=== PATIENT | female | born 1935 | race Caucasian/White ===

== ENCOUNTER 2019-11-30 22:02 | Observation (INO) ==
[2019-11-30 22:57] LABS: Hemoglobin 13.3 gm/dL (12.5-16.0); Mean Cell Volume 91.5 fl (78-100); Mean Corpuscular Hemoglobin 31.2 pg (27-31); Mean Corpuscular Hgb Conc 34.1 g/dl (32-36); Mean Platelet Volume 9.7 fl (8-12.5); Neutrophil # 2.7 K/mm3 (1.3-6.0); Neutrophil % 57.8 % (42-75.0); Platelet Count 164 K/mm3 (150-450); Red Blood Count 4.26 M/mm3 (4.2-5.4); Red Cell Distribution Width 12.7 % (11.5-14.0); White Blood Count 4.6 K/mm3 (4.0-10.5)
[2019-11-30 23:13] LABS: Albumin * 3.4 gm/dl (3.4-5.0); Anion Gap 10.7 mmol/L (6.8-13.8); Bilirubin, Total 0.5 mg/dL (0.0-1.1); Ca. Corrected For Albumin 9.2 mg/dL (8.4-10.2); Carbon Dioxide 34.7 mmol/L (24-32.6); Potassium 3.4 mmol/L (3.4-4.6); Total Protein 7.2 gm/dL (6.2-8.2)
[2019-12-01] MEDS ORDERED: NORMAL SALINE 1,000 ML IV ONE (01:32)
[2019-12-01] MEDS ORDERED: OSELTAMIVIR PHOSPHATE 75 MG CAPSULE PO ONE (01:32)
--- NOTE | 2019-12-01 01:32 | ERNOTE ---
Medical Problem HPI - General Chief Complaint: Flu Symptoms Time Seen by Provider: 12/01/19 01:18 Source: patient, family Exam Limitations: no limitations - Immun/Allergies/Home Medications Immunizations: IMMUNIZATION HX Immunizations Up to Date Yes History of Influenza Vaccine Yes Hx Pneumococcal Vaccination Yes Allergies/Adverse Reactions: Allergies No Known Allergies Allergy (Verified 11/30/19 22:33) Home Medications: HOME MEDICATIONS aspirin 81 mg tablet,delayed release 81 mg PO DAILY 07/31/18 [Last Taken Unknown] calcium citrate 250 mg calcium-vitamin D3 200 unit tablet 1 tab PO DAILY tab 07/31/18 [Last Taken Unknown] potassium chloride 20 mEq tablet,extended release 20 meq PO DAILY #90 tab 05/11/19 [Last Taken Unknown] esomeprazole magnesium 20 mg capsule,delayed release 20 mg PO DAILY #30 cap 05/25/19 [Last Taken Unknown] atenolol 100 mg-chlorthalidone 25 mg tablet 0.5 tab PO DAILY #45 tab 10/19/19 [Last Taken Unknown] mirtazapine 15 mg tablet 15 mg PO HS #30 tab 11/16/19 [Last Taken Unknown] - History of Present History Narrative: Patient states she had cough and congestion that started on . She has been worsening over the past couple of days, as well she has been weak and somewhat dizzy. Timing: getting worse Severity: moderate Review of Systems - Review of Systems Constitutional: Present: recent illness, fever ENT: Present: nose congestion, nasal drainage Respiratory: Present: shortness of breath, cough Cardiology: Absent: chest pain Gastrointestinal/Abdominal: Present: nausea. Absent: vomiting Genitourinary: Present: decreased urinary output Musculoskeletal: Present: muscle pain Skin: Absent: rash Neurological: Absent: dizziness/light-headedness Endocrine: Present: excessive sweating Medical History (Last Reviewed 12/01/19 @ 04:31 by Lucy Brown RN) Palpitations (Chronic) Onset Date: Unknown Osteopenia (Chronic) Onset Date: Unknown Osteoarthritis (Chronic) Onset Date: Unknown Hypertension (Chronic) Onset Date: ~08/07/13 Hyperlipidemia (Chronic) Onset Date: ~08/07/13 Hernia (Chronic) Onset Date: Unknown History of gastroesophageal reflux (GERD) (Chronic) Onset Date: ~08/07/13 Gastritis (Chronic) Onset Date: Unknown Diverticulitis (Chronic) Onset Date: Unknown COPD (chronic obstructive pulmonary disease) Surgical History: Surgical History (Last Reviewed 12/01/19 @ 04:31 by Lucy Brown RN) H/O colonoscopy Onset Date: ~06/16/12 With biopsy; Dr. Bowen History of appendectomy Onset Date: ~1946 History of biopsy Onset Date: ~1994 bilateral breasts History of colonoscopy with polypectomy Onset Date: ~06/16/12 History of hysterectomy Onset Date: ~12/2008 [facility] Family History: Family History (Last Reviewed 12/01/19 @ 04:31 by Lucy Brown RN) Mother Alive and well Father , unknown age Cancer Brain tumor Grandmother , unknown age Cancer Uterine Social History: (Last Reviewed 12/01/19 @ 04:31 by Lucy Brown RN) Social History: adopted: No Marital status: lives independently: Yes household members: spouse current occupational status: retired Previous occupational history: RN Highest education level completed: Associate degree: occupat Service: No Tobacco: Smoking Status: Former smoker how long ago did patient quit smoking: age 60 Alcohol: alcohol intake: current alcohol intake frequency: holiday/special occasion Substance Use: substance use type: does not use Dietary Habits: caffeine: Yes Type: coffee Physical Exam - Physical Exam General Appearance: Present: wd/wn, alert, mild distress Head Exam: Present: normal inspection, no evidence of injury Ears, Nose, Throat: Present: normal ENT inspection Neck: Present: normal inspection, nontender Respiratory: Present: no respiratory distress, normal breath sounds Cardiovascular/Chest: Present: regular rate, rhythm, no murmur Gastrointestinal/Abdominal: Present: normal bowel sounds, soft Extremity Exam: Present: normal inspection, normal range of motion Neurological Exam: Present: alert, oriented, normal mood/affect, no motor/sensory deficits Skin Exam: Present: normal color, warm/dry Progress - Results and Orders Patient's Lab Results:: I have reviewed the patient's lab results. Results and Orders: Laboratory Tests 11/30/19 11/30/19 11/30/19 22:50 22:50 22:50 WBC 4.6 Hgb 13.3 Hct 39.0 Plt Count 164 Sodium 125 L Potassium 3.4 Chloride 83 L Carbon Dioxide 34.7 H BUN 10 Creatinine 0.83 Random Glucose 105 Calcium 9.0 Total Bilirubin 0.5 AST 43 ALT 20 Alkaline Phosphatase 48 L Influenza Type A Ag Positive H Influenza Type B Ag Negative - Vital Signs Patient's Vital Signs:: I have reviewed the patient's vital signs. Vital Signs: Vital Signs 11/30/19 22:31 Temperature 36.8 C Pulse Rate 62 Respiratory Rate 18 Blood Pressure 152/80 H O2 Sat by Pulse Oximetry 92 L - EKG EKG #1 EKG: NSR, no ST T wave changes EKG read: Interp. by me - X-Ray X-Ray #1 X-Ray: chest Interpretation: Reviewed by me X-ray Comments: IMPRESSION: 1. HYPERINFLATION WITH MILD FIBROTIC CHANGE. 2. NO ACUTE CARDIOPULMONARY PROCESS. Electronically signed by Hu Ferrell M.D - Progress/Reassessment Chief Complaint: Flu Symptoms Progress Note-Subjective: 12/01/19 03:[address] Reddy she agrees with outpatient admission for IV fluids and diuretics and close monitoring of sodium level Departure Clinical Impression: Hyponatremia, Influenza A - Departure Disposition: Still a patient Condition: Fair
[2019-12-01] MEDS ORDERED: ALBUTEROL SULFATE/IPRATROPIUM 3 ML NEBU IH PRN (08:46)
--- NOTE | 2019-12-01 09:07 | HP ---
Chief Complaint - Chief Complaint Date of Service: 12/01/19 Time of Service: 08:33 History of Present Illness: Johanna kaur is an 84-year-old white female with past medical history of hypertension, COPD, GERD, Diverticulosis, who was admitted on 12/01/2019 because of shortness of breath and coughing. 6 days prior to admission the patient started having fever low-grade and chills associated with cough, congestion, myalgias and arthralgias all over. Her signs and symptoms started worsening over the past couple of days which made her weak and dizzy. Her appetite went down and she had been having poor oral intake. Her reflux started bothering her again and so she started back on her proton pump inhibitor. 1 day prior to admission the patient started having shortness of breath and so she went to our emergency room where she was found to be hyponatremic and had a positive influenza A. Her chest x-ray showed no acute cardiopulmonary findings. It did show mild hyperinflation. Her EKG showed NSR. Her WBC was normal. The patient was admitted for further evaluation and treatment. Medical History (Last Reviewed 12/01/19 @ 04:31 by Lucy Brown RN) Palpitations (Chronic) Onset Date: Unknown Osteopenia (Chronic) Onset Date: Unknown Osteoarthritis (Chronic) Onset Date: Unknown Hypertension (Chronic) Onset Date: ~08/07/13 Hyperlipidemia (Chronic) Onset Date: ~08/07/13 Hernia (Chronic) Onset Date: Unknown History of gastroesophageal reflux (GERD) (Chronic) Onset Date: ~08/07/13 Gastritis (Chronic) Onset Date: Unknown Diverticulitis (Chronic) Onset Date: Unknown COPD (chronic obstructive pulmonary disease) Surgical History: Surgical History (Last Reviewed 12/01/19 @ 04:31 by Lucy Brown RN) H/O colonoscopy Onset Date: ~06/16/12 With biopsy; Dr. Bowen History of appendectomy Onset Date: ~1946 History of biopsy Onset Date: ~1994 bilateral breasts History of colonoscopy with polypectomy Onset Date: ~06/16/12 History of hysterectomy Onset Date: ~12/2008 [facility] Family History: Family History (Last Reviewed 12/01/19 @ 04:31 by Lucy Brown RN) Mother Alive and well Father , unknown age Cancer Brain tumor Grandmother , unknown age Cancer Uterine Social History: (Last Reviewed 12/01/19 @ 04:31 by Lucy Brown RN) Social History: adopted: No Marital status: lives independently: Yes household members: spouse current occupational status: retired Previous occupational history: RN Highest education level completed: Associate degree: occupat Service: No Tobacco: Smoking Status: Former smoker how long ago did patient quit smoking: age 60 Alcohol: alcohol intake: current alcohol intake frequency: holiday/special occasion Substance Use: substance use type: does not use Dietary Habits: caffeine: Yes Type: coffee Review Of Systems (GEN) - Review of Systems Generalized/Overall Review: Present: Weakness, Chills EENTM: Present: Other - sore throat x 1 day. Absent: Blurred Vision Respiratory: Present: Cough, Shortness of Breath. Absent: Wheezing Cardiac: Absent: Chest Pain, Edema, Palpitations Abdominal: Present: Other - loose stools x 1. Absent: Nausea, Vomiting, Abdominal Pain Genitourinary: Absent: Urgency Musculoskeletal: Absent: Joint Pain, Back Pain Neurological: Absent: Headache Skin: Absent: Lesions, Rash Misc: All systems neg except as marked Immunizations: IMMUNIZATION HX Immunizations Up to Date Yes History of Influenza Vaccine Yes Hx Pneumococcal Vaccination Yes Allergies/Adverse Reactions: Allergies Allergy/AdvReac Type Severity Reaction Status Date / Time No Known Allergies Allergy Verified 11/30/19 22:33 Home Medications: HOME MEDICATIONS aspirin 81 mg tablet,delayed release 81 mg PO DAILY 07/31/18 [Last Taken Unknown] calcium citrate 250 mg calcium-vitamin D3 200 unit tablet 1 tab PO DAILY tab 07/31/18 [Last Taken Unknown] potassium chloride 20 mEq tablet,extended release 20 meq PO DAILY #90 tab 05/11/19 [Last Taken Unknown] esomeprazole magnesium 20 mg capsule,delayed release 20 mg PO DAILY #30 cap 05/25/19 [Last Taken Unknown] atenolol 100 mg-chlorthalidone 25 mg tablet 0.5 tab PO DAILY #45 tab 10/19/19 [Last Taken Unknown] mirtazapine 15 mg tablet 15 mg PO HS #30 tab 11/16/19 [Last Taken Unknown] Exam - Exam Vital Signs: Vital Signs - Last Taken Temp 37.0 C 12/01/19 07:30 Pulse 66 12/01/19 07:30 Resp 20 12/01/19 07:30 BP 135/64 12/01/19 07:30 Pulse Ox 97 12/01/19 07:30 Constitutional: Present: Alert, Oriented x3, Cooperative, Elderly, Thin and frail ENT Exam: Present: hearing grossly normal, dry mucous membranes Eye Exam: bilateral eye: normal inspection, PERRL, EOMI Neck: Present: supple. 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, no motor/sensory deficits, oriented x 3 Diagnostic Studies: Abnormal Lab Results 11/30/19 11/30/19 11/30/19 Range/Units 22:50 22:50 22:50 MCH 31.2 H (27-31) pg Monocytes % 13.4 H (0.0-9) % Lymphocytes # 1.31 L (1.5-3.5) k/mm3 Sodium 125 L (132-142) mmol/L Plasma Sodium 125 L (130-142) mmol/L Chloride 83 L (97-106) mmol/L Carbon Dioxide 34.7 H (24-32.6) mmol/L Alkaline Phosphatase 48 L (50-170) U/L Influenza Type A Ag Positive H (NEGATIVE) 12/01/19 Range/Units 02:49 MCH (27-31) pg Monocytes % (0.0-9) % Lymphocytes # (1.5-3.5) k/mm3 Sodium 125 L (132-142) mmol/L Plasma Sodium (130-142) mmol/L Chloride (97-106) mmol/L Carbon Dioxide (24-32.6) mmol/L Alkaline Phosphatase (50-170) U/L Influenza Type A Ag (NEGATIVE) Laboratory Results WBC 4.6 K/mm3 (4.0-10.5) 11/30/19 22:50 RBC 4.26 M/mm3 (4.2-5.4) 11/30/19 22:50 Hgb 13.3 gm/dL (12.5-16.0) 11/30/19 22:50 Hct 39.0 % (37.0-47.0) 11/30/19 22:50 MCV 91.5 fl (78-100) 11/30/19 22:50 MCH 31.2 pg (27-31) H 11/30/19 22:50 MCHC 34.1 g/dl (32-36) 11/30/19 22:50 RDW 12.7 % (11.5-14.0) 11/30/19 22:50 Plt Count 164 K/mm3 (150-450) 11/30/19 22:50 MPV 9.7 fl (8-12.5) 11/30/19 22:50 Immature Gran % (Auto) 0.20 % (0.001-0.429) 11/30/19 22:50 Immature Gran # (Auto) 0.01 K/mm3 (0.000-0.0310) 11/30/19 22:50 Neutrophils % 57.8 % (42-75.0) 11/30/19 22:50 Lymphocytes % 28.2 % (20-51) 11/30/19 22:50 Monocytes % 13.4 % (0.0-9) H 11/30/19 22:50 Eosinophils % 0.0 % (0.0-3.0) 11/30/19:50 Basophils % 0.4 % (0.0-1.0) 11/30/19 22:50 Nucleated RBC % 0.0 k/mm3 (0-1) 11/30/19 22:50 Neutrophils # 2.7 K/mm3 (1.3-6.0) 11/30/19 22:50 Lymphocytes # 1.31 k/mm3 (1.5-3.5) L 11/30/19 22:50 Monocytes # 0.6 k/mm3 (0.0-1.0) 11/30/19 22:50 Eosinophils # 0.0 k/mm3 (0.0-0.7) 11/30/19 22:50 Absolute Basophils 0.0 k/mm3 (0.0-0.1) 11/30/19 22:50 Sodium 125 mmol/L (132-142) L 12/01/19 02:49 Plasma Sodium 125 mmol/L (130-142) L 11/30/19 22:50 Potassium 3.4 mmol/L (3.4-4.6) 11/30/19 22:50 Chloride 83 mmol/L (97-106) L 11/30/19 22:50 Carbon Dioxide 34.7 mmol/L (24-32.6) H 11/30/19 22:50 Anion Gap 10.7 mmol/L (6.8-13.8) 11/30/19 22:50 BUN 10 mg/dL (3-23) 11/30/19 22:50 Creatinine 0.83 mg/dL (0.4-1.4) 11/30/19 22:50 Est GFR (Non-Af Amer) 70 mL/min (60-130) 11/30/19 22:50 BUN/Creatinine Ratio 12.0 (9.0-21.6) 11/30/19 22:50 Random Glucose 105 mg/dL (70-110) 11/30/19 22:50 Calcium 9.0 mg/dL (7.9-10.9) 11/30/19 22:50 Calcium Adj for Albumin 9.2 mg/dL (8.4-10.2) 11/30/19 22:50 Total Bilirubin 0.5 mg/dL (0.0-1.1) 11/30/19 22:50 AST 43 U/L (0-48) 11/30/19 22:50 ALT 20 U/L (19-67) 11/30/19 22:50 Alkaline Phosphatase 48 U/L (50-170) L 11/30/19 22:50 Total Protein 7.2 gm/dL (6.2-8.2) 11/30/19 22:50 Albumin 3.4 gm/dl (3.4-5.0) 11/30/19 22:50 Influenza Type A Ag Positive (NEGATIVE) H 11/30/19 22:50 Influenza Type B Ag Negative (NEGATIVE) 11/30/19 22:50 Assessment/Plan - Narrative Narrative: Johanna Kaur is an 84-year-old white female who was admitted on 12/01/2019 because of shortness of breath, congestion, and weakness. She was found to be hyponatremic with a sodium level of 125 and is likely due to asymptomatic hypotonic, hypovolemic, hyponatremia , acute vs chronic?- likely chronic ( more than 48 hours). Her calculated serum osmolarity is 259.4. We will hold her atenolol chlorthalidone and just give her atenolol as this could be due to her diuretic and to her decreased appetite and p.o. intake from her influenza A. We will start her on IV fluids consisting of NSS +10 M EQ of KCl at 125 mL/h. She got a 1 L bolus bag in the emergency room. We will monitor her sodium level not to exceed 8-10 M EQ in 24 hours. I will also likely continue with her oseltamivir even though this is more than 48 hours as she is more than 66 years old, immunocompromised, and might be having beginning lower respiratory tract infection (SOB, coughing, congestion, feels there is phlegm but cannot bring it out)- acute bronchitis, likely still viral. Will defer form giving antibiotics yet. We will give her DuoNeb treatments as well as incentive spirometry using Steff. We will continue some of her home medications. - Assessment/Plan (1) Hyponatremia Problem: Acute (2) Influenza A Problem: Acute (3) COPD (chronic obstructive pulmonary disease) Problem: Chronic (4) GERD (gastroesophageal reflux disease) Problem: Chronic Qualifiers: (5) Diverticulosis Problem: Chronic (6) Hypertension Problem: Chronic Qualifiers:
[2019-12-01] MEDS: CALCIUM CARBONATE/VITAMIN D3 1 TAB TABLET PO SCH (09:48)
[2019-12-01] MEDS: PANTOPRAZOLE SODIUM 20 MG TABLET.DR PO SCH (09:48)
[2019-12-01] MEDS: ATENOLOL 100 MG TABLET PO SCH ×2 (09:48→10:30)
[2019-12-01] MEDS: POTASSIUM CHLORIDE 10 MEQ in NORMAL SALINE 1,000 ML IV SCH ×2 (09:58→16:02)
[2019-12-01] MEDS ORDERED: ALBUTEROL SULFATE 2.5 MG/0.5 ML VIAL.NEB IH PRN (10:14)
[2019-12-01] MEDS: ATENOLOL 50 MG TABLET PO SCH (10:18)
[2019-12-01 13:15] LABS: Anion Gap 6.6 mmol/L (6.8-13.8); BUN/Creatinine Ratio 9.2 (9.0-21.6); Calcium * 8.1 mg/dL (7.9-10.9); Carbon Dioxide 35.7 mmol/L (24-32.6); Estimated Creat Clear 44.4; Potassium 3.3 mmol/L (3.4-4.6)
[2019-12-01 18:09] LABS: Anion Gap 7.8 mmol/L (6.8-13.8); BUN/Creatinine Ratio 9.2 (9.0-21.6); Calcium * 8.7 mg/dL (7.9-10.9); Carbon Dioxide 35.4 mmol/L (24-32.6); Estimated Creat Clear 44.4; Potassium 3.2 mmol/L (3.4-4.6)
[2019-12-01] MEDS: OSELTAMIVIR PHOSPHATE 75 MG CAPSULE PO SCH (20:19)
[2019-12-01] MEDS ORDERED: CALCIUM CARBONATE 500 MG TAB.CHEW PO PRN (20:55)
[2019-12-01] MEDS ORDERED: MIRTAZAPINE 15 MG TABLET PO SCH (21:00)
[2019-12-01 22:22] LABS: Anion Gap 6.1 mmol/L (6.8-13.8); BUN/Creatinine Ratio 8.3 (9.0-21.6); Calcium * 8.2 mg/dL (7.9-10.9); Carbon Dioxide 33.9 mmol/L (24-32.6); Estimated Creat Clear 46.8
[2019-12-01] MEDS: POTASSIUM CHLORIDE 20 MEQ in NORMAL SALINE 1,000 ML IV SCH (22:52)
[2019-12-02] MEDS: POTASSIUM CHLORIDE 10 MEQ in NORMAL SALINE 1,000 ML IV SCH (02:52)
[2019-12-02] MEDS ORDERED: POTASSIUM CHLORIDE 10 MEQ TABLET.SA PO ONE ×2 (05:00→05:29)
[2019-12-02] MEDS: POTASSIUM CHLORIDE 20 MEQ in NORMAL SALINE 1,000 ML IV SCH ×2 (05:37→13:00)
[2019-12-02] MEDS: PANTOPRAZOLE SODIUM 20 MG TABLET.DR PO SCH (06:36)
[2019-12-02 07:23] LABS: Anion Gap 7.1 mmol/L (6.8-13.8); BUN/Creatinine Ratio 8.7 (9.0-21.6); Carbon Dioxide 33.6 mmol/L (24-32.6); Estimated Creat Clear 48.9; Potassium 3.7 mmol/L (3.4-4.6)
--- NOTE | 2019-12-02 08:16 | PN ---
Progess Note - Interim Date: 12/02/19 Time: 08:15 Narrative: 12/02/19 08:15 feels better. appetite is coming back. feels strong enough and wishes to go home today.possible dischgarge later today.
[2019-12-02] MEDS: ATENOLOL 50 MG TABLET PO SCH (09:09)
[2019-12-02] MEDS: CALCIUM CARBONATE/VITAMIN D3 1 TAB TABLET PO SCH (09:12)
[2019-12-02] MEDS: OSELTAMIVIR PHOSPHATE 75 MG CAPSULE PO SCH (09:12)
--- NOTE | 2019-12-02 09:29 | DS ---
(1) Influenza A Problem: Acute (2) Hyponatremia Problem: Resolved (3) COPD (chronic obstructive pulmonary disease) Problem: Chronic (4) GERD (gastroesophageal reflux disease) Problem: Chronic Qualifiers: (5) Diverticulosis Problem: Chronic (6) Hypertension Problem: Chronic Qualifiers: Date of Discharge:: 12/02/19 Hospital Course: Johanna kaur is an 84-year-old white female with past medical history of hypertension, COPD, GERD, Diverticulosis, who was admitted on 12/01/2019 because of shortness of breath and coughing. 6 days prior to admission the patient started having fever low-grade and chills associated with cough, congestion, myalgias and arthralgias all over. Her signs and symptoms started worsening over the past couple of days which made her weak and dizzy. Her appetite went down and she had been having poor oral intake. Her reflux started bothering her again and so she started back on her proton pump inhibitor. 1 day prior to admission the patient started having shortness of breath, congestion and so she went to our emergency room where she was found to be hyponatremic and had a positive influenza A. Her chest x-ray showed no acute cardiopulmonary findings. It did show mild hyperinflation. Her EKG showed NSR. Her WBC was normal. The patient was admitted for further evaluation and treatment. Her hyponatremia was likely due to asymptomatic hypotonic, hypovolemic, hyponatremia , likely chronic ( more than 48 hours). Her calculated serum osmolarity was 259.4. We will hold her atenolol chlorthalidone and just give her atenolol as this could be due to her diuretic and to her decreased appetite and p.o. intake from her influenza A. We started her on IV fluids consisting of NSS +10 M EQ of KCl at 125 mL/h. She got a 1 L bolus bag in the emergency room. We monitored her sodium level not to exceed 8-10 M EQ in 24 hours. I continued with her oseltamivir even though this was more than 48 hours as she was more than 66 years old, immunocompromised, and might be having beginning lower respiratory tract infection (SOB, coughing, congestion, feels there is phlegm but cannot bring it out)- acute bronchitis, likely still viral. We deferred form giving antibiotics. We gave her DuoNeb treatments as well as incentive spirometry using Steff. This morning the patient is feeling better and is wanting to go home. her Na is back to candice (132) as well as her potassium. She is stable to be discharged. We will continue to hold her chlorthalidone and will likely restarte her atenolol/chlorthalidone and KCl when she follows up in 1 week. Procedures Performed: none Results and Findings: Lab Pending Results 11/30/19 22:50: Influenza Type A Ag Positive H, Influenza Type B Ag Negative 11/30/19 22:50: WBC 4.6, RBC 4.26, Hgb 13.3, Hct 39.0, MCV 91.5, MCH 31.2 H, MCHC 34.1, RDW 12.7, Plt Count 164, MPV 9.7, Immature Gran % (Auto) 0.20, Immature Gran # (Auto) 0.01, Neutrophils % 57.8, Lymphocytes % 28.2, Monocytes % 13.4 H, Eosinophils % 0.0, Basophils % 0.4, Nucleated RBC % 0.0, Neutrophils # 2.7, Lymphocytes # 1.31 L, Monocytes # 0.6, Eosinophils # 0.0, Absolute Basophils 0.0 11/30/19 22:50: Sodium 125 L, Plasma Sodium 125 L, Potassium 3.4, Chloride 83 L, Carbon Dioxide 34.7 H, Anion Gap 10.7, BUN 10, Creatinine 0.83, Est GFR (Non-Af Amer) 70, BUN/Creatinine Ratio 12.0, Random Glucose 105, Calcium 9.0, Calcium Adj for Albumin 9.2, Total Bilirubin 0.5, AST 43, ALT 20, Alkaline Phosphatase 48 L, Total Protein 7.2, Albumin 3.4 12/01/19 02:49: Sodium 125 L 12/01/19 13:05: Sodium 125 L, Plasma Sodium 126 L, Potassium 3.3 L, Chloride 86 L, Carbon Dioxide 35.7 H, Anion Gap 6.6 L, BUN 7, Creatinine 0.76, Est GFR (Non- Af Amer) 77, BUN/Creatinine Ratio 9.2, Random Glucose 140 H D, Calcium 8.1 12/01/19 17:59: Sodium 128 L, Plasma Sodium 128 L, Potassium 3.2 L, Chloride 88 L, Carbon Dioxide 35.4 H, Anion Gap 7.8, BUN 7, Creatinine 0.76, Est GFR (Non-Af Amer) 77, BUN/Creatinine Ratio 9.2, Random Glucose 106, Calcium 8.7 12/01/19 22:09: Sodium 128 L, Plasma Sodium 128 L, Potassium 3.0 L, Chloride 91 L, Carbon Dioxide 33.9 H, Anion Gap 6.1 L, BUN 6, Creatinine 0.72, Est GFR (Non- Af Amer) 82, BUN/Creatinine Ratio 8.3 L, Random Glucose 103, Calcium 8.2 12/02/19 06:48: Sodium 132, Plasma Sodium 132, Potassium 3.7 D, Chloride 95 L, Carbon Dioxide 33.6 H, Anion Gap 7.1, BUN 6, Creatinine 0.69, Est GFR (Non-Af Amer) 86, BUN/Creatinine Ratio 8.7 L, Random Glucose 101, Calcium 8.0 Discharge Location: Home Disposition: Home self-care Condition: Stable Discharge Activity: Activity as tolerated Discharge Diet: General/regular food Referrals: Leonard Lockwood MD [Primary Care Provider] - Additional Patient Instructions (free text): Follow up with PCP in 1 week. Prescriptions (Any new or edited meds): Albuterol Sulfate/Ipratropium [Duoneb 2.5-0.5MG/3ML Soln] 3 ml INHALATION BID PRN #7 nebu PRN Reason: Shortness Of Breath/Wheezing Transmission Status: Received by [place] Albuterol Sulfate [Proair Hfa] 1 - 2 puff INHALATION Q4H PRN #1 inhaler PRN Reason: Shortness Of Breath Transmission Status: Received by [place] Oseltamivir Phosphate [Tamiflu] 75 mg PO BID #7 cap Transmission Status: Received by [place] Atenolol [Tenormin] 50 mg PO DAILY #30 tab Transmission Status: Received by [place] Complete Home Medications List: Complete Home Medication List: aspirin 81 mg tablet,delayed release 81 mg PO DAILY 07/31/18 calcium citrate 250 mg calcium-vitamin D3 200 unit tablet 1 tab PO DAILY tab 07/31/18 esomeprazole magnesium 20 mg capsule,delayed release 20 mg PO DAILY #30 cap 05/25/19 mirtazapine 15 mg tablet 15 mg PO HS #30 tab 01/27/20 Albuterol Sulfate [Proair Hfa] 1 - 2 puff INHALATION Q4H PRN #1 inhaler 12/02/19 Albuterol Sulfate/Ipratropium [Duoneb 2.5-0.5MG/3ML Soln] 3 ml INHALATION BID PRN #7 nebu 12/02/19 Atenolol [Tenormin] 50 mg PO DAILY #30 tab 12/02/19 Oseltamivir Phosphate [Tamiflu] 75 mg PO BID #7 cap 12/02/19
[2019-12-02 14:25] VITALS: BP 141/51
== END 2019-12-02 13:45 | disposition home or self-care (01) ==
LOC: ER 22:02 → MS 22:02
PROVIDERS: ADMIT Internal Medicine; ATTEND Internal Medicine
CPT/HCPCS: 36415; 71020; 71046; 80048; 80053; 84295; 85025; 87400; 87449; 93005; 94640; 94664; 96365; 96366; 99285; G0378